=== PATIENT | female | born 1955 | race African-American/Black ===

== ENCOUNTER 2019-08-14 09:53 | Emergency (ER) | payer SELFPAY ==
--- NOTE | 2019-08-14 10:25 | ED ---
Throat Pain/Nasal Congestion - HPI Summary HPI Summary: The patient is a 64 y/o F presenting to [facility] with a chief complaint of dental pain in the upper right side onset two days ago. She reports that she suddenly had severe pain, and she applied ointment (powdered Aspirin) to the area that relieved the pain initially, but the pain has returned and will not subside. She notes she has veneers, and she states that there is sensitivity as there may be a hole in the tooth. She called a dentist this morning but is unable to be seen until 08/18/19. She denies any headache or fevers. Aching pain currently rated 8/10 in severity. Touch aggravates the pain. No PMHx. Nonsmoker , occasional EtOH, no substance use. Medications reviewed. Allergies noted. - History of Current Complaint Chief Complaint: EDDentalPain Time Seen by Provider: 08/14/19 10:14 Hx Obtained From: Patient Onset/Duration: Lasting Days - two, Still Present Severity: Severe Associated Signs And Symptoms: Positive: Negative Cough: None Related History: Other (Noted In Comments) - veneers - Allergies/Home Medications Allergies/Adverse Reactions: Allergies Allergy/AdvReac Type Severity Reaction Status Date / Time kiwi Allergy Rash Verified 08/14/19 09:58 fried eggs Allergy Diarrhea Uncoded 08/14/19 09:57 PMH/Surg Hx/FS Hx/Imm Hx Endocrine/Hematology History: Denies: Hx Diabetes Cardiovascular History: Denies: Hx Hypercholesterolemia, Hx Hypertension Respiratory History: Denies: Hx Chronic Obstructive Pulmonary Disease (COPD) - Surgical History Surgical History: Yes Surgery Procedure, Year, and Place: [facility] Infectious Disease History: No Infectious Disease History: Denies: Traveled Outside the [place] in Last 30 Days - Family History Known Family History: Negative: Hypertension, Renal Disease, Respiratory Disease - Social History Alcohol Use: Occasionally Hx Substance Use: No Substance Use Type: Reports: None Hx Tobacco Use: No Smoking Status (MU): Never Smoked Tobacco Review of Systems Negative: Fever Positive: Dental Pain - upper right Negative: Headache All Other Systems Reviewed And Are Negative: Yes Physical Exam - Summary Physical Exam Summary: Appearance: The patient is well-nourished in no acute distress and in no acute pain. Skin: The skin is warm and dry, and skin color reflects adequate perfusion. HEENT: The head is normocephalic and atraumatic. The pupils are equal and reactive. The conjunctivae are clear and without drainage. Nares are patent and without drainage. Mouth reveals moist mucous membranes, and the throat is without erythema and exudate. The external ears are intact. The ear canals are patent and without drainage. The tympanic membranes are intact. Patient has veneers. There are no signs of cellulitis or abscess. There is no lymph adenopathy. Neck: The neck is supple with full range of motion and non-tender. There are no carotid bruits. There is no neck vein distension. Respiratory: Chest is non-tender. Lungs are clear to auscultation and breath sounds are symmetrical and equal. Cardiovascular: Heart is regular rate and rhythm. There is no murmur or rub auscultated. There is no peripheral edema and pulses are symmetrical and equal. Abdomen: The abdomen is soft and non-tender. There are normal bowel sounds heard in all four quadrants and there is no organomegaly palpated. Musculoskeletal: There is no back tenderness noted. Extremities are non-tender with full range of motion. There is good capillary refill. There is no peripheral edema or calf tenderness elicited. Neurological: Patient is alert and oriented to person, place and time. The patient has symmetrical motor strength in all four extremities. Cranial nerves are grossly intact. Deep tendon reflexes are symmetrical and equal in all four extremities. Psychiatric: The patient has an appropriate affect and does not exhibit any anxiety or depression. Triage Information Reviewed: Yes Vital Signs On Initial Exam: Initial Vitals Temp Pulse Resp BP Pulse Ox 97.4 F 71 18 141/80 99 08/14/19 09:54 08/14/19 09:54 08/14/19 09:54 08/14/19 09:54 08/14/19 09:54 Vital Signs Reviewed: Yes Procedures - Sedation Patient Received Moderate/Deep Sedation with Procedure: No Diagnostics - Vital Signs Vital Signs Temp Pulse Resp BP Pulse Ox 08/14/19 09:54 97.4 F 71 18 141/80 99 - Laboratory Lab Statement: Any lab studies that have been ordered have been reviewed, and results considered in the medical decision making process. EENT Course/Dx - Course Course Of Treatment: There is no sign of cellulitis or abscess. I will treat her pain with Ewing and penicillin and she will follow-up with dentist on Sunday. - Diagnoses Provider Diagnoses: Pain, dental Discharge ED - Sign-Out/Discharge Documenting (check all that apply): Patient Departure - Patient will be discharged home. - Discharge Plan Condition: Stable Disposition: HOME Prescriptions: HYDROcodone/ACETAMIN 5-325 MG* [Ewing 5-325 TAB*] 1 tab PO Q6H PRN #20 tab MDD 4 PRN Reason: Pain HYDROcodone/ACETAMIN 5-325 MG* [Ewing 5-325 TAB*] 1 tab PO Q6H PRN #20 tab MDD 4 PRN Reason: Pain HYDROcodone/ACETAMIN 5-325 MG* [Ewing 5-325 TAB*] 1 tab PO Q6H PRN #20 tab MDD 4 PRN Reason: Pain HYDROcodone/ACETAMIN 5-325 MG* [Ewing 5-325 TAB*] 1 tab PO Q4H PRN #20 tab MDD 6 PRN Reason: Pain - Moderate oxyCODONE/Acetamin 5/325 MG* [Percocet 5/325 TAB*] 1 tab PO Q6H PRN #20 tab MDD 4 PRN Reason: Pain Penicillin VK TAB* [Penicillin VK 250 mg Tab*] 500 mg PO QID #40 tab Patient Education Materials: Toothache (ED) Referrals: [facility] [Outside] - If Needed Additional Instructions: Please take medications as prescribed for pain and prevention of infection. Follow up with your dentist as you have scheduled on 08/18/19. Follow up with your primary care provider as needed. Return to the emergency department for any new or worsening symptoms. - Billing Disposition and Condition Condition: STABLE Disposition: Home - Attestation Statements Document Initiated by Pat: Yes Documenting Scribe: Nohemy Fiore Provider For Whom Pat is Documenting (Include Credential): MD Mendoza Melendezibjaime Attestation: Nohemy Carr scribed for Dr. Trevor Braga MD on 08/14/19 at 1147. Scribe Documentation Reviewed: Yes Provider Attestation: The documentation as recorded by the Nohemy villalpando accurately reflects the service I personally performed and the decisions made by me, Dr. Trevor Braga MD Status of Scribjaime Document: Viewed
[2019-08-14 10:42] VITALS: BP 0/0
== END 2019-08-14 10:35 | disposition home or self-care (01) ==
LOC: ED 09:53
DX: K08.89 Other specified disorders of teeth and supporting structures (principal)
CPT/HCPCS: 99282